=== PATIENT | male | born 1965 | race Caucasian/White ===

== ENCOUNTER 2018-03-28 06:02 | Day surgery (SDC) | payer BC ==
[~2018-03-28 06:02] MED LIST: Dextrose 5%-0.45% NaCl 1,000 ML IV SCH; Sodium Chloride 0.9% 10 ML Syringe FLUSH PRN
[2018-03-28] MEDS ORDERED: Midazolam 1 MG/ML 2 ML SDV ONE (06:13)
[2018-03-28] MEDS ORDERED: fentaNYL 100 MCG/2 ML SDV ONE (06:13)
[2018-03-28] MEDS ORDERED: Dextrose 5%-0.45% NaCl 1,000 ML IV SCH (06:45)
[2018-03-28] MEDS ORDERED: fentaNYL 100 MCG/2 ML SDV IV ONE ×2 (06:56→06:57)
[2018-03-28] MEDS ORDERED: Midazolam 1 MG/ML 2 ML SDV IV ONE ×6 (06:57→07:04)
--- NOTE | 2018-03-28 07:35 | OR ---
DATE: 03/28/2018 PROCEDURE PERFORMED: Total colonoscopy. INSTRUMENT USED: CF-H180AL Olympus video colonoscope. PREMEDICATIONS: Fentanyl 100 mcg intravenous, Versed 4 mg intravenous. The procedure was done under pulse oximetry, BP recording, and director of cardiac cath lab. INDICATION: The patient with previous colonic tubular adenoma. Surveillance colonoscopic examination is done for detection of any polypoid lesions and removal, endoscopic hemostasis therapy if needed. DESCRIPTION OF PROCEDURE: Initial rectal exam was unremarkable. Rigid anoscopy was normal. The colonoscope was passed with ease. Scattered diverticula were noted in the distal left colon along with deformity. The scope was passed with ease up to the ileocecal area. Photographs were taken of the normal-appearing cecum, identified by landmarks of appendiceal orifice and double-bulged ileocecal folds. No bleeding was noted from any of the visualized areas at the commencement of the examination. No stricture. No vascular ectasia. No large or isolated ulcerations seen. No evidence of diffuse inflammatory bowel disease in the form of friability, contact bleeding, or ulcerations. No polyp or tumor mass identified. Probing the proximal sides of folds and flexures, using adequate distention and clearing up the stool material, withdrawal of the scope was made, cecum to rectum time over 6 minutes. No bleeding was noted from any of the visualized areas at the completion of examination. IMPRESSION: Diverticulosis. The patient tolerated the procedure well. [facility] /[id number]
[2018-03-28 11:44] VITALS: BP 110/70
== END 2018-03-28 08:40 | disposition home or self-care (01) ==
LOC: DL.ENDO 06:02
PROVIDERS: ATTEND Internal Medicine Gastroenterology
DX: Z12.11 Encounter for screening for malignant neoplasm of colon (principal); K57.30 Diverticulosis of large intestine without perforation or abscess without bleeding; Z86.010 Personal history of colon polyps; Z88.8 Allergy status to other drugs, medicaments and biological substances
CPT/HCPCS: 45378; J7042; J2250; J3010

== ENCOUNTER 2022-10-11 06:10 | Day surgery (SDC) | payer BC ==
[~2022-10-11 06:10] MED LIST changes: +Sodium Chloride 0.9% 10 ML Syringe FLUSH SCH
[2022-10-11] MEDS ORDERED: fentaNYL 100 MCG/2 ML SDV ONE (08:01)
[2022-10-11] MEDS ORDERED: Midazolam 1 MG/ML 2 ML SDV ONE (08:01)
[2022-10-11] MEDS ORDERED: fentaNYL 100 MCG/2 ML SDV IV ONE ×5 (08:05→08:15)
[2022-10-11] MEDS ORDERED: Midazolam 1 MG/ML 2 ML SDV IV ONE ×5 (08:06→08:12)
[2022-10-11 09:39] VITALS: BP 101/64; PULSE 55
== END 2022-10-11 10:00 | disposition home or self-care (01) ==
LOC: DL.ENDO 06:10
PROVIDERS: ATTEND Internal Medicine Gastroenterology
DX: K57.30 Diverticulosis of large intestine without perforation or abscess without bleeding (principal); I10 Essential (primary) hypertension; E78.5 Hyperlipidemia, unspecified; K21.9 Gastro-esophageal reflux disease without esophagitis; E66.09 Other obesity due to excess calories; Z83.79 Family history of other diseases of the digestive system; Z87.891 Personal history of nicotine dependence; Z68.27 Body mass index [BMI] 27.0-27.9, adult
CPT/HCPCS: 45378; J2250; J3010; J7042